=== PATIENT | male | born 2005 | race Caucasian/White ===

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

== ENCOUNTER 2025-07-05 20:22 | Emergency (ER) | payer MEDICAID, SELFPAY ==
--- OUTSIDE RECORDS SUMMARY | 2025-07-05 20:24 | XMS_ITS | Clinical Summary ---
Author Organization [facility] Address [address] [place] [id number] Care Team Providers Care Captain [employer] Name Role Phone CamiloteAmaury gaviria MD Primary Care Provider + Allergies No known active allergies Medications No known medications Active Problems No known active problems Immunizations Immunization Administration Dates Next Due COVID-19 vaccine (CIVICO NTech 30mcg/0.3mL) 12YO+ CECIL-SUCROSE PFMDV 06/13/2022 DTaP 12/06/2006 [id number] (Pediarix) 02/12/2006,2005,1 12/05/2004 DTaP-IPV (Kinrix) 07/22/2010 HIB PRP-OMP (PedvaxHIB) 12/06/2006,2005, HPV 9 (Gardasil 9) 11/01/2017,10/24/2016 Hepatitis A (Peds) 08/06/2013,07/21/2009, 008 Influenza A (H1N1), Inactivated 10/15/2009,09/17 Influenza Virus, Unspecified 08/12/2015 Influenza, IIV3 (Age 6-35 mos) 07/25/2011 Influenza, IIV3 (Age >=3 years) 07/29/20 14,08/06/2013,07/29/2012,07/25,08/11/2008 Influenza, IIV4 12/22/2020,,11/01/2017,10/24,08/26/2015,08/27/2014 Influenza, IIV4 (=>6mos) MDV 11/07/2018 Influenza,LAIV4 Live Intrana silas (Flumist) 07/22/2010 MENINGOCOCCAL VACCINE 2 VIAL 2MO-55YO (MENVEO) 06/13/2022,10/24/2016 MMR 07/25/2011,07/22/2010 MMRV 07/30/2006 Pneumococcal conj 13-Valent (Prevnar 13) 07/22/2010 Pneumococcal conj 7-Valent (Prevnar 7) 0 12/06/2006,02/12/2006,2005,10/04 Tdap 10/24/2016 Varicella Vaccine 07/25/2011,07/22/2010 Family History Medical History Relation Name Comments Good Health Father Good Health Mother Asthma No Family History Cancer-colon No Family History Diabetes No Family History Heart Disease No Family History Relation Name Status Comments Father Mother Social History Tobacco Use Types Packs/Day Years Used Date Smoking Tobacco: Never Smokeless Tobacco: Never Tobacco Cessation:Counseling Given: Yes Comments:No exposure Alcohol Use Standard Drinks/Week Comments Never 0 (1 standard drink = 0.6 oz pur e alcohol) PHQ-2 Answer Date Recorded PHQ-2 TOTAL SCORE 0 06/13/2022 Social Connections Answer Date Recorded Do you often feel lonely or isolated from those around you? 0 08/28/2024 Financial Resource Strain Answer Date R ecorded Difficulty of Paying Living Expenses 3 08/28/2024 Difficulty of Paying Living Expenses Not on file 08/28/2024 Food Insecurity Answer Date Recorded Do you worry your food will run out before you are able to buy more? 1 08/28/2024 Transportation Needs Answer Date Record ed Does lack of transportation keep you from medica l appointments? 1 08/28/2024 Does lack of transportation keep you from work, meetings or getting things that you need? 1 08/28/2024 Housing Stability Answer Date Recorded What is your housing situation today? 1 08/28/2024 Utilities Answer Date Recorded Do you have trouble paying f or utilities (for example, heat, electricity, water, phone)? 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 Gender Identity Not on file Sexual Orientation Not on file Obstetrics History Last Filed Vital Signs Vital Sign Reading Time Taken Comments Blood Pressure 127/72 08/28/2024 9:26 AM CDT Pulse 82 08/28/2024 9:26 AM CDT Temperature 37.3 C (99.1 F) 08/28/2024 9:26 AM CDT Respiratory Rate 20 06/29/2009 10:32 AM CDT Oxygen Saturation 98% 08/28/2024 9:26 AM CDT Inhaled Oxygen Concentration - - Weight 87.2 kg (192 lb 3.2 oz) 08/28/2024 9:26 A M CDT Height 178 cm (5' 10.08) 06/13/2022 1:51 PM CDT Head Circumference 47 cm 08/11/2008 4:54 PM CDT Body Mass Index - - Plan of Treatment Health Maintenance Due Date Last Done Comments HIV for age 15-65 2020 Depression screening for age 12+ 06/13/2023 06/13/2022, 12/22/2020, 01/05/2020, Additional history exists Well Child Check for age 3-20 06/13/2023, 12/22/2020, 11/11/2019, Additional history exists BMI (ht and wt on same day) for age 18+ 2023 Hepatitis C screening for ag e 18-79 2023 COVID-19 vaccine series ( season) 2025 06/13/2022, 12/22/2021, 11/10/2021 Influenza Vaccine (#1) 2025 , 11/19/2019, 11/07/2018, Additional history exists Tetanus booster 10/24/2026 10/24/2016 RSV vaccine for adults or (1 - 1-dose 75+ series) 2080 Hepatitis B series for 19+ Completed 02/12, 2005, 2005 Pneumococcal series for age 6-49 Completed 07/22/2010, 12/06/2006, 02/12/2006, Additional history exists HPV series for age 9-45 Completed 11/01/2017, 10/24 Meningococcal series for age 11-21 Completed 2021, 10/24/2016 Insurance [facility] ATTN: [place] [address] [facility] Care Teams Captain [employer] Relationship Specialty Start Date End Date Votel, Amaury Vega MD [facility] [address] [facility] - General 05/04/06
[2025-07-05 20:36] VITALS: BP 131/76; PULSE 65; RESP 18; TEMP 37; O2SAT 98; BMI 27.3
--- NOTE | 2025-07-05 20:57 | ED_ITS ---
HPI - General Adult General Date Seen: 07/05/25 Chief complaint: Back Injury/Pain Stated complaint: Lowerback/tailbone pain Time Seen by Provider: 07/05/25 20:52 History of Present Illness HPI narrative: 19-year-old male presenting to the ER today with low back pain. Triage notes says that he is having pain in his low back and tailbone but actually with to me he clearly points to his midline of his lower lumbar spine right at the juncture of the lower L-spine and upper sacrum. He is not having pain down into the gluteal cleft her tailbone. He says he has had pain in that area off and on for a while but it has always been mild and transient. His current episode of pain started about a month or a little bit longer ago. He is not sure what brought it on. No known injury. He has been having episodes of pain it is worse when he walks, worse when he bends at the waist. The pain is always located in his low back. It never radiates down his buttocks or legs. No associated leg numbness or weakness. No fever or chills. Normal bladder and bowel function. No pain through to the front of his abdomen. His pains been getting worse for the past few days. Mother has been giving him Tylenol and ibuprofen. Unclear dose, she said she gave him ?900 mg? of ?Tylenol and ibuprofen? today. Unclear if that was 900 of Tylenol, 900 of ibuprofen, or some combination. Is not helping. He also notes that the pain is worse when he tries to sit down and sore when he sitting in the car. It has been getting worse, he has also been feeling a popping and hearing a popping noise when he walks. It seems to come from slow. He has no history of chronic low back pain. Previous no back surgeries. No other medical problems. No allergies. Related Data Home Medications ?Medication ?Instructions ?Recorded ?Confirmed acetaminophen 325 mg tablet 650 mg PO Q6H PRN 07/05/25 07/05/25 (Tylenol) ibuprofen 200 mg capsule 400 mg PO Q6-8H PRN 07/05/25 07/05/25 Allergies Allergy/AdvReac Type Severity Reaction Status Date / Time No Known Drug Allergies Allergy Verified 07/05/25 20:57 [facility] Medical History (Updated 07/05/25 @ 22:09 by Ronnie Bhatti MD) Patient denies medical problems ?Z78.9 - Other specified health status (ICD-10) Social History Smoking Status: Never smoker Do you use any of these nicotine containing products: None Second hand tobacco smoke exposure: No How often do you have a drink containing alcohol: never How often do you have six or more drinks on one occasion: Never AUDIT-C Alcohol total score: 0 Non-prescribed substance use: denies use service: No Exam Narrative: Exam Narrative: Constitutional: Appears well-developed and well-nourished. Alert. Conversant. Non toxic. HENT: Head: Atraumatic. Nose: Nose normal. Mouth/Throat: Oral mucosa is clear and moist. no trismus. Eyes: Conjunctivae normal. EOM normal. Pupils equal, round, and reactive to light. No scleral icterus. Neck: Normal range of motion. Neck supple. No tracheal deviation present. Cardiovascular: Normal rate, regular rhythm. No gallop. No friction rub. No murmur heard. Pulmonary/Chest: Effort normal. No stridor. No respiratory distress. No wheezes. No rales. No rhonchi Abdominal: Soft. . No distension. No mass. No tenderness. Musculoskeletal: RUE: Normal range of motion. No tenderness. No deformity LUE: Normal range of motion. No tenderness. No deformity RLE: Normal range of motion. No edema. No tenderness. No deformity LLE: Normal range of motion. No edema. No tenderness. No deformity He does endorse pain and tenderness in the midline lumbar spine over perhaps L4, L5, and the top of the sacrum. No posterior pelvis pain. There is no bruising. No redness. No step-off. Pelvis stable. Hips are nontender. Neurological: Alert and oriented to person, place, and time. Normal strength. CN II-VII intact. No sensory deficit. GCS eye subscore is 4. GCS verbal subscore is 5. GCS motor subscore is 6. Normal coordination Sensory: Normal light touch sensation bilaterally on the anteromedial thigh (L3), medial malleolus (L4), dorsal first web space (L5), lateral malleolus (S1). Strength: 5/5 strength hip flexors (L3) on the rig ht and left 5/5 strength in the quadriceps (L4) on t he right and left 5/5 strength in the tibialis anterior 5/5 strength in the EHL (L5) on the righ t and left 5/5 strength in the gastrocnemius (S1) o n the right and left 5/5 strength in the hamstring on the rig ht and left DTRs: symmetric in the patella (2/4) Negative straight leg raise bilaterally. Skin: Skin is warm and dry. No rash noted. No pallor. Normal capillary refill. Psychiatric: Normal mood. Normal affect. Const: Vital Signs, click to edit/add: Vital Signs - 24 hr 07/05/25 20:36 Temperature 98.6 F Pulse Rate [Right Pulse Oximeter] 65 Respiratory Rate 18 Blood Pressure [Le ft Upper Arm] 131/76 Pulse Oximetry 98 Oxygen Delivery Me thod Room Air Course Vital Signs Vital signs: Initial Vital Signs Temperature 98.6 F 07/05/25 20:36 Temperature Source Temporal Artery Scan 07/05/25 20:36 Pulse Rate 65 07/05/25 20:36 Pulse Rhythm Regular 07/05/25 20:36 Respiratory Rate 18 07/05/25 20:36 Blood Pressure 131/76 07/05/25 20:36 Blood Pressure Mean 94 07/05/25 20:36 Blood Pressure Position Sitting 07/05/25 20:36 Pulse Oximetry 98 07/05/25 20:36 Oxygen Delivery Method Room Air 07/05/25 20:36 Vital Signs Temperature 98.6 F 07/05/25 20:36 Pulse Rate 65 07/05/25 20:36 Respiratory Rate 18 07/05/25 20:36 Blood Pressure 131/76 07/05/25 20:36 Pulse Oximetry 98 07/05/25 20:36 Oxygen Delivery Method Room Air 07/05/25 20:36 Temperature 98.6 F 07/05/25 20:36 Pulse Rate 65 07/05/25 20:36 Respiratory Rate 18 07/05/25 20:36 Blood Pressure 131/76 07/05/25 20:36 Pulse Oximetry 98 07/05/25 20:36 Oxygen Delivery Method Room Air 07/05/25 20:36 Medications Administered Medications: Discontinued Medications Generic Name Dose Route Start Last Admin Trade Name Freq PRN Reason Stop Dose Admin Cyclobenzaprine HCl 10 mg 07/05/25 21:09 07/05/25 21:26 Cyclobenzaprine Hcl 10 Mg Tablet PO 07/05/25 21:10 10 mg ONCE ONE Administration Ibuprofen 600 mg 07/05/25 21:09 07/05/25 21:26 Ibuprofen 600 Mg Tablet PO 07/05/25 21:10 600 mg ONCE ONE Administration Medical Decision Making MDM Narrative Medical decision making narrative: This patient presented with back pain. Broad differential considered. The patient did not sustain any trauma, but he has been hearing some popping when he walks. X-rays of his spine are negative for any acute fracture or subluxation. X-ray of the patient's pelvis showed no clear pelvic fracture, SI joint diastasis. There is a benign chondroma of the right femoral head which could potentially be causing some right hip popping. No red flag symptoms to suggest CT and/or MRI is indicated at this point. The patient has not had a fever, saddle/perineal anesthesia, bilateral foot numbness, or bowel or bladder dysfunction. There is no clinical evidence of cauda equina syndrome, discitis, spinal/epidural space hematoma or epidural abscess. The neurological exam is normal and the patient's symptoms seem consistent with a musculoskeletal issues and significant muscle spasm. Pain has improved with interventions in the emergency department. The patient will be discharged with pain medications to use as directed. Ice or heat to the back and stretching exercises. No heavy lifting, bending or twisting. Return if increasing pain, numbness, weakness, or bowel or bladder dysfunction. The patient was advised to schedule follow-up with their primary doctor within few days to re-assess symptoms. He does not currently have PCP so recommended follow-up with the [facility]. Given clinic phone number for him to call for ER follow-up visit. Return precautions reviewed and questions answered. Prescription for Flexeril. Sedation precautions reviewed. Imaging Data XR Pelvis: Attestation: I have reviewed the pertinent imaging results. Radiologist's impression: Findings/Impression: No acute fracture or dislocation. Nonspecific benign-appearing bony protuberance of the inferomedial right femoral neck may reflect small osteochondroma. The hip joint spaces are within normal limits. The sacroiliac joints are grossly within normal limits. No suspicious soft tissue abnormality. XR L spine: Attestation: I have reviewed the pertinent imaging results. Radiologist's impression: Findings/Impression: No acute fracture, dislocation, or suspicious osseous lesion. The lumbar vertebral bodies maintain their normal heights with straightened lordosis. No significant spondylolisthesis or disc space height loss. Prominent colonic stool burden. Discharge Plan Discharge Clinical Impression: Low back pain Patient Disposition: Home, Self-Care Condition: Stable Instructions: Acute Low Back Pain (ED) Additional Instructions: As we discussed, please follow-up with the [facility] for recheck within 1-2 weeks. Call [phone] to arrange an ER follow-up appointment tomorrow . If you have any worsening symptoms, such as worsening pain, pain radiating down your legs, numbness or weakness in your legs, dysfunction of your bladder or bowels, fever, or other worsening symptoms, please return to the ER right away. Please continue to use ibuprofen or Tylenol as needed for pain. Use the prescription muscle relaxer, Flexeril, if needed. Use caution with Flexeril because it can cause dizziness, drowsiness, and can be addictive. Prescriptions: No Action acetaminophen [Tylenol] 325 mg tablet 650 mg PO Q6H PRN ibuprofen 200 mg capsule 400 mg PO Q6-8H PRN Follow Up/Referrals: Amaury Levy MD [Primary Care Provider, Family Practice] Stand Alone Forms: [facility]School Release, [facility] Inst[facility]
--- NOTE | 2025-07-05 21:09 | CRLHL7_ITS ---
For Patients: As a result of the Century Cures Act, medical imaging exams and procedure reports are released immediately into your electronic medical record. You may view this report before your referring provider. If you have questions, please contact your health care provider. Indication: Low back/sacral pain. Technique: Single view of the pelvis. Comparison: None. Findings/Impression: No acute fracture or dislocation. Nonspecific benign-appearing bony protuberance of the inferomedial right femoral neck may reflect small osteochondroma. The hip joint spaces are within normal limits. The sacroiliac joints are grossly within normal limits. No suspicious soft tissue abnormality. Dictated by Peter Shannon MD @ 07/05/2025 9:36:53 PM (Electronically Signed)
--- NOTE | 2025-07-05 21:09 | CRLHL7_ITS ---
For Patients: As a result of the Cures Act, medical imaging exams and procedure reports are released immediately into your electronic medical record. You may view this report before your referring provider. If you have questions, please contact your health care provider. Indication: Low back/sacral pain. Technique: Two views of the lumbar spine. Comparison: None. Findings/Impression: No acute fracture, dislocation, or suspicious osseous lesion. The lumbar vertebral bodies maintain their normal heights with straightened lordosis. No significant spondylolisthesis or disc space height loss. Prominent colonic stool burden. Dictated by Peter Shannon MD @ 07/05/2025 9:37:53 PM (Electronically Signed)
[2025-07-05] MEDS: IBUPROFEN 600 MG TABLET PO (21:26)
[2025-07-05] MEDS: CYCLOBENZAPRINE HCL 10 MG TABLET PO (21:26)
== END 2025-07-05 22:16 | disposition home or self-care (01) ==
PROVIDERS: Emergency Provider Emergency Medicine; PCP Family Medicine
DX: M54.50 Low back pain, unspecified (principal)
CPT/HCPCS: 72100; 72170; 99282; 99283; A9270